=== PATIENT | female | born 1935 | race Hispanic/Latino ===

== ENCOUNTER 2020-10-30 23:02 | Emergency (ER) | payer MEDICARE, OTHER ==
[2020-10-30] MEDS ORDERED: NIFEDIPINE 10 MG CAP ONE (23:27)
[2020-10-30 23:37] LABS: BASOPHILS % (AUTO) 0.7 % (0.0-5.0); EOSINOPHILS % (AUTO) 1.5 % (0.0-8.0); HEMATOCRIT 35.2 % (36-48); LYMPHOCYTES % (AUTO) 47.3 % (21.0-51.0); MEAN CORPUSCULAR HEMOGLOBIN 31.6 pg (27.0-33.0); MEAN CORPUSCULAR HGB CONC 35.2 g/dL (32.0-36.0); MEAN CORPUSCULAR VOLUME 89.8 fL (79-99); NEUTROPHILS % (AUTO) 39.3 % (40.0-77.0); PLATELET COUNT (AUTO) 199 K/uL (130-400); RED BLOOD CELL COUNT(AUTO) 3.92 MIL/uL (4.00-5.50); WHITE BLOOD COUNT (AUTO) 8.7 K/uL (4.8-10.8)
[2020-10-31 00:28] LABS: CREATININE 1.3 mg/dL (0.5-1.5); POTASSIUM 3.9 mmol/L (3.5-5.1)
[2020-10-31 00:32] LABS: ALBUMIN 3.9 g/dL (3.5-5.0); BILIRUBIN,TOTAL 0.4 mg/dL (0.2-1.0); TOTAL PROTEIN, SERUM 7.5 g/dL (6.0-8.3)
== END 2020-10-31 01:00 | disposition home or self-care (01) ==
LOC: EDH 23:02
DX: I10 Essential (primary) hypertension (principal); E78.00 Pure hypercholesterolemia, unspecified; M19.90 Unspecified osteoarthritis, unspecified site; Z90.49 Acquired absence of other specified parts of digestive tract
CPT/HCPCS: 36415; 71045; 80053; 84484; 85025; 93005

== ENCOUNTER 2022-01-18 22:30 | Emergency (ER) | payer OTHER ==
[~2022-01-18] VITALS: Ht 165.1 cm; Wt 70.8 kg
[2022-01-18 23:10] LABS: BASOPHILS % (AUTO) 0.6 % (0.0-5.0); EOSINOPHILS % (AUTO) 0.8 % (0.0-8.0); HEMATOCRIT 31.4 % (36-48); LYMPHOCYTES % (AUTO) 40.1 % (21.0-51.0); MEAN CORPUSCULAR HEMOGLOBIN 30.7 pg (27.0-33.0); MEAN CORPUSCULAR HGB CONC 35.4 g/dL (32.0-36.0); MONOCYTES % (AUTO) 9.8 % (3.0-13.0); NEUTROPHILS % (AUTO) 48.4 % (40.0-77.0); PLATELET COUNT (AUTO) 202 K/uL (130-400); RED BLOOD CELL COUNT(AUTO) 3.61 MIL/uL (4.00-5.50); RED CELL DISTRIBUTION WIDTH 11.9 % (11.0-15.5); WHITE BLOOD COUNT (AUTO) 10.6 K/uL (4.8-10.8)
[2022-01-18] MEDS ORDERED: NIFEDIPINE 10 MG CAP PO ONE (23:30)
[2022-01-18 23:32] LABS: APPEARANCE,URINE CLEAR (CLEAR); BILIRUBIN,URINE NEGATIVE (NEGATIVE); COLOR,URINE YELLOW (YELLOW); GLUCOSE, URINE (UA) NEGATIVE (NEGATIVE); KETONES,URINE NEGATIVE (NEGATIVE); LEUKOCYTE ESTERASE ,URINE NEGATIVE (NEGATIVE); NITRATE,URINE NEGATIVE (NEGATIVE); OCCULT BLOOD,URINE NEGATIVE (NEGATIVE); PH,URINE 7.5 (5.0-8.0); PROTEIN,URINE TRACE mg/dL (NEGATIVE); UROBILINOGEN,URINE 0.2 mg/dL (0.2-1.0)
[2022-01-18 23:33] LABS: ALANINE AMINOTRANSFERASE 18 U/L (12-78); ALBUMIN 3.8 g/dL (3.5-5.0); ASPARTATE AMINOTRANSFERASE 16 U/L (10-37); CARBON DIOXIDE 22 mmol/L (21-32); CHLORIDE 99 mmol/L (101-111); CREATINE KINASE, TOTAL 77 U/L (21-232); CREATININE 1.2 mg/dL (0.5-1.5); GLOMERULAR FILTR. RATE CALC 45 mL/min (>60); GLUCOSE,RANDOM 99 mg/dL (70-105); POTASSIUM 3.5 mmol/L (3.5-5.1); SODIUM SERUM 133 mmol/L (136-145); TOTAL PROTEIN, SERUM 7.1 g/dL (6.0-8.3); UREA NITROGEN, BLOOD 17 mg/dL (7-18)
[2022-01-18 23:40] LABS: CRP QUANTITATIVE < 2.00 mg/L (0.00-9.0)
[2022-01-18 23:45] LABS: BACTERIA,URINE None Seen /HPF (None Seen); RBC,URINE None Seen /HPF (0-1); SQUAMOUS EPITHELIAL CELL,UR Rare /HPF (0-2); WBC,URINE None Seen /HPF (0-1)
[2022-01-18] MEDS ORDERED: HYDR-3421 PO (23:53)
[2022-01-19] MEDS ORDERED: LORAZEPAM 1 MG TABLET ONE (00:06)
[2022-01-19 00:57] LABS: MAGNESIUM 2.1 mg/dL (1.80-2.40)
[2022-01-19 02:06] VITALS: BP 140/48
== END 2022-01-19 02:10 | disposition home or self-care (01) ==
LOC: EDH 22:30
DX: F41.1 Generalized anxiety disorder (principal); T36.4X5A Adverse effect of tetracyclines, initial encounter; I10 Essential (primary) hypertension; Y92.89 Other specified places as the place of occurrence of the external cause
CPT/HCPCS: 99285; 71045; 87635; 82550 ×2; 83735; 84484; 80053; 83880; 85025; 87804 ×2; 86140; 81001; 36415; 93005 ×2; C9803

== ENCOUNTER 2022-07-07 22:57 | Emergency (ER) | payer OTHER ==
[~2022-07-07] VITALS: Ht 160 cm; Wt 56.2 kg
[~2022-07-07 22:57] MED LIST: HYDR-3421 PO
[2022-07-07 23:29] LABS: BASOPHILS % (AUTO) 0.7 % (0.0-5.0); EOSINOPHILS % (AUTO) 0.9 % (0.0-8.0); LYMPHOCYTES % (AUTO) 40.7 % (21.0-51.0); MEAN CORPUSCULAR HEMOGLOBIN 31.2 pg (27.0-33.0); MEAN CORPUSCULAR HGB CONC 35.5 g/dL (32.0-36.0); MONOCYTES % (AUTO) 13.2 % (3.0-13.0); NEUTROPHILS % (AUTO) 44.4 % (40.0-77.0); PLATELET COUNT (AUTO) 216 K/uL (130-400); RED BLOOD CELL COUNT(AUTO) 3.75 MIL/uL (4.00-5.50); RED CELL DISTRIBUTION WIDTH 11.8 % (11.0-15.5)
[2022-07-07 23:37] LABS: CREATININE 1.2 mg/dL (0.5-1.5); POTASSIUM 3.8 mmol/L (3.5-5.1)
[2022-07-07 23:42] LABS: ALBUMIN 3.9 g/dL (3.5-5.0); TOTAL PROTEIN, SERUM 7.5 g/dL (6.0-8.3)
[2022-07-08 00:50] VITALS: BP 136/75
[2022-07-08] MEDS ORDERED: FLUT16H NASAL (01:12)
== END 2022-07-08 01:21 | disposition home or self-care (01) ==
LOC: EDH 22:57
DX: J30.9 Allergic rhinitis, unspecified (principal); E78.00 Pure hypercholesterolemia, unspecified; I10 Essential (primary) hypertension; Z90.49 Acquired absence of other specified parts of digestive tract; Z20.822 Contact with and (suspected) exposure to COVID-19
CPT/HCPCS: 99285; 87635; 84484; 80053; 85025; 87804 ×2; 36415; 93005; 71045; C9803

== ENCOUNTER 2023-03-11 19:49 | Emergency (ER) | payer OTHER ==
[~2023-03-11] VITALS: Ht 154.9 cm; Wt 55.8 kg
[~2023-03-11 19:49] MED LIST changes: +FLUT16H NASAL
[2023-03-11 20:43] LABS: BASOPHILS # (AUTO) 0.09 K/uL (0.00-0.20); BASOPHILS % (AUTO) 0.8 % (0.0-5.0); EOSINOPHILS # (AUTO) 0.12 K/uL (0.00-0.70); EOSINOPHILS % (AUTO) 1.1 % (0.0-8.0); IMMATURE GRANULOCYTE ABSOLUTE 0.03 K/uL (0-1); LYMPHOCYTES % (AUTO) 45.9 % (21.0-51.0); MEAN CORPUSCULAR HEMOGLOBIN 30.6 pg (27.0-33.0); MEAN CORPUSCULAR HGB CONC 34.4 g/dL (32.0-36.0); MEAN CORPUSCULAR VOLUME 88.9 fL (79-99); MONOCYTES % (AUTO) 9.4 % (3.0-13.0); NEUTROPHILS # (AUTO) 4.7 K/uL (1.8-7.7); NEUTROPHILS % (AUTO) 42.5 % (40.0-77.0); PLATELET COUNT (AUTO) 256 K/uL (130-400); RED BLOOD CELL COUNT(AUTO) 4.05 MIL/uL (4.00-5.50); RED CELL DISTRIBUTION WIDTH 11.8 % (11.0-15.5)
[2023-03-11 20:50] LABS: INR < 0.93 (0.85-1.15); PROTHROMBIN TIME 10.3 SEC (9.6-11.6)
[2023-03-11 20:51] LABS: PARTIAL THROMBOPLASTIN TIME 30.1 SEC (26.3-35.5)
[2023-03-11 20:56] LABS: CREATININE 1.1 mg/dL (0.5-1.5); POTASSIUM 4.5 mmol/L (3.5-5.1)
[2023-03-11 20:56] LABS: ADD UA MICROSCOPIC YES; APPEARANCE,URINE CLEAR (CLEAR); BILIRUBIN,URINE NEGATIVE (NEGATIVE); COLOR,URINE COLORLESS (YELLOW); GLUCOSE, URINE (UA) NEGATIVE (NEGATIVE); KETONES,URINE NEGATIVE (NEGATIVE); LEUKOCYTE ESTERASE ,URINE NEGATIVE Leu/uL (NEGATIVE); NITRATE,URINE NEGATIVE (NEGATIVE); OCCULT BLOOD,URINE NEGATIVE (NEGATIVE); PH,URINE 7.5 (5.0-8.0); PROTEIN,URINE 100 mg/dL (NEGATIVE); UROBILINOGEN,URINE 0.2 mg/dL (0.2-1.0)
[2023-03-11] MEDS ORDERED: HYDROXYZINE 25 MG TABLET PO ONE (21:00)
[2023-03-11 21:01] LABS: BILIRUBIN,TOTAL 0.3 mg/dL (0.2-1.0)
[2023-03-11] MEDS ORDERED: ACETAMINOPHEN 500 MG TABLET ONE (21:05)
[2023-03-11 21:11] LABS: SQUAMOUS EPITHELIAL CELL,UR FEW /HPF (0-2)
[2023-03-11] MEDS ORDERED: LORAZEPAM 2 MG/ML 1 ML VIAL IVP ONE (21:30)
[2023-03-11] MEDS ORDERED: ACETAMINOPHEN 500 MG TABLET PO ONE (21:30)
[2023-03-11] MEDS ORDERED: HYDR50CA50 PO (23:18)
[2023-03-11 23:43] VITALS: BP 143/50; PULSE 66; RESP 18; O2SAT 100
== END 2023-03-12 00:01 | disposition home or self-care (01) ==
LOC: EDH 19:49
DX: F41.9 Anxiety disorder, unspecified (principal); I16.0 Hypertensive urgency; I51.7 Cardiomegaly; E78.00 Pure hypercholesterolemia, unspecified; I10 Essential (primary) hypertension; Z90.49 Acquired absence of other specified parts of digestive tract
CPT/HCPCS: 99285; 96374; 71045; 84484; 80053; 85025; 85610; 85730; 81001; 36415; 93005; J2060

== ENCOUNTER 2023-03-25 23:37 | Emergency (ER) | payer OTHER ==
[~2023-03-25 23:37] MED LIST changes: +HYDR50CA50 PO
[2023-03-25 23:54] LABS: BASOPHILS # (AUTO) 0.08 K/uL (0.00-0.20); BASOPHILS % (AUTO) 0.7 % (0.0-5.0); EOSINOPHILS # (AUTO) 0.17 K/uL (0.00-0.70); EOSINOPHILS % (AUTO) 1.5 % (0.0-8.0); HEMATOCRIT 34.4 % (36-48); IMMATURE GRANULOCYTE ABSOLUTE 0.02 K/uL (0-1); LYMPHOCYTES # (AUTO) 6.5 K/uL (1.0-4.8); MEAN CORPUSCULAR HEMOGLOBIN 31.2 pg (27.0-33.0); MEAN CORPUSCULAR HGB CONC 36.3 g/dL (32.0-36.0); MEAN CORPUSCULAR VOLUME 85.8 fL (79-99); MONOCYTES # (AUTO) 0.9 K/uL (0.1-1.0); MONOCYTES % (AUTO) 7.4 % (3.0-13.0); NEUTROPHILS % (AUTO) 34.2 % (40.0-77.0); PLATELET COUNT (AUTO) 254 K/uL (130-400); RED BLOOD CELL COUNT(AUTO) 4.01 MIL/uL (4.00-5.50); RED CELL DISTRIBUTION WIDTH 11.6 % (11.0-15.5); WHITE BLOOD COUNT (AUTO) 11.6 K/uL (4.8-10.8)
[2023-03-26] MEDS ORDERED: CLONIDINE HCL 0.2 MG TABLET PO ONE
[2023-03-26 00:02] LABS: CREATININE 1.2 mg/dL (0.5-1.5)
[2023-03-26 00:06] LABS: ALBUMIN 4.3 g/dL (3.5-5.0); BILIRUBIN,TOTAL 0.5 mg/dL (0.2-1.0); TOTAL PROTEIN, SERUM 8.3 g/dL (6.0-8.3)
[2023-03-26 00:17] LABS: APPEARANCE,URINE CLEAR (CLEAR); BILIRUBIN,URINE NEGATIVE (NEGATIVE); COLOR,URINE COLORLESS (YELLOW); GLUCOSE, URINE (UA) NEGATIVE (NEGATIVE); KETONES,URINE NEGATIVE (NEGATIVE); LEUKOCYTE ESTERASE ,URINE NEGATIVE Leu/uL (NEGATIVE); NITRATE,URINE NEGATIVE (NEGATIVE); OCCULT BLOOD,URINE NEGATIVE (NEGATIVE); PH,URINE 7.5 (5.0-8.0); PROTEIN,URINE 70 mg/dL (NEGATIVE); UROBILINOGEN,URINE 0.2 mg/dL (0.2-1.0)
[2023-03-26 00:27] LABS: ADD UA MICROSCOPIC YES
[2023-03-26 00:33] LABS: BACTERIA,URINE RARE /HPF (None Seen); SQUAMOUS EPITHELIAL CELL,UR RARE /HPF (0-2); WBC,URINE 0-1 /HPF (0-1)
[2023-03-26] MEDS ORDERED: LABETALOL 20MG SYG IV ONE (01:00)
[2023-03-26] MEDS ORDERED: LISI20TA24 PO (02:25)
[2023-03-26 02:55] VITALS: BP 120/45; PULSE 61; RESP 18; O2SAT 99
== END 2023-03-26 03:03 | disposition home or self-care (01) ==
LOC: EDH 23:37
DX: I16.0 Hypertensive urgency (principal); E78.00 Pure hypercholesterolemia, unspecified; I10 Essential (primary) hypertension; Z90.49 Acquired absence of other specified parts of digestive tract
CPT/HCPCS: 36415; 80053; 81001; 83880; 84484; 85025; 93005; 96374

== ENCOUNTER 2023-04-07 21:47 | Emergency (ER) | payer OTHER ==
[~2023-04-07] VITALS: Ht 152.4 cm; Wt 54.4 kg
[~2023-04-07 21:47] MED LIST changes: +LISI20TA24 PO
[2023-04-07 22:15] LABS: BASOPHILS # (AUTO) 0.05 K/uL (0.00-0.20); BASOPHILS % (AUTO) 0.4 % (0.0-5.0); EOSINOPHILS % (AUTO) 0.8 % (0.0-8.0); IMMATURE GRANULOCYTE ABSOLUTE 0.11 K/uL (0-1); LYMPHOCYTES # (AUTO) 3.8 K/uL (1.0-4.8); LYMPHOCYTES % (AUTO) 28.8 % (21.0-51.0); MEAN CORPUSCULAR HEMOGLOBIN 31.8 pg (27.0-33.0); MEAN CORPUSCULAR HGB CONC 35.9 g/dL (32.0-36.0); MEAN CORPUSCULAR VOLUME 88.7 fL (79-99); MONOCYTES # (AUTO) 1.3 K/uL (0.1-1.0); MONOCYTES % (AUTO) 9.6 % (3.0-13.0); NEUTROPHILS # (AUTO) 7.9 K/uL (1.8-7.7); NEUTROPHILS % (AUTO) 59.6 % (40.0-77.0); PLATELET COUNT (AUTO) 241 K/uL (130-400); RED BLOOD CELL COUNT(AUTO) 3.27 MIL/uL (4.00-5.50); RED CELL DISTRIBUTION WIDTH 12.5 % (11.0-15.5); WHITE BLOOD COUNT (AUTO) 13.2 K/uL (4.8-10.8)
[2023-04-07 22:30] LABS: SARS-CoV-2, RNA, NAAT NEGATIVE SARS CoV-2 (NEGATIVE)
[2023-04-07 22:39] LABS: B-TYPE NATRIURETIC PEPTIDE 376 pg/mL (0-100)
[2023-04-07 22:40] LABS: INFLUENZA TYPE A Negative For Type A (NEGATIVE); INFLUENZA TYPE B Negative For Type B (NEGATIVE)
[2023-04-07 22:42] LABS: CREATININE 1.4 mg/dL (0.5-1.5); MAGNESIUM 2.2 mg/dL (1.80-2.40); POTASSIUM 4.6 mmol/L (3.5-5.1)
[2023-04-07 22:44] LABS: APPEARANCE,URINE CLEAR (CLEAR); BILIRUBIN,URINE NEGATIVE (NEGATIVE); GLUCOSE, URINE (UA) NEGATIVE (NEGATIVE); KETONES,URINE NEGATIVE (NEGATIVE); LEUKOCYTE ESTERASE ,URINE NEGATIVE Leu/uL (NEGATIVE); NITRATE,URINE NEGATIVE (NEGATIVE); OCCULT BLOOD,URINE NEGATIVE (NEGATIVE); PROTEIN,URINE 30 mg/dL (NEGATIVE); UROBILINOGEN,URINE 0.2 mg/dL (0.2-1.0)
[2023-04-07 22:45] LABS: ADD UA MICROSCOPIC YES; COLOR,URINE YELLOW (YELLOW)
[2023-04-07 22:46] LABS: WBC,URINE 0-1 /HPF (0-1)
[2023-04-07 22:48] LABS: MUCUS,URINE RARE LPF (None Seen); SQUAMOUS EPITHELIAL CELL,UR RARE /HPF (0-2)
[2023-04-07] MEDS ORDERED: HYDROXYZINE 25 MG TABLET ONE (22:49)
[2023-04-07] MEDS ORDERED: HYDROXYZINE 25 MG TABLET PO ONE (23:00)
[2023-04-08] MEDS ORDERED: HYDR50CA50 PO (01:13)
[2023-04-08 01:33] VITALS: BP 159/48; PULSE 68; RESP 18; O2SAT 98
== END 2023-04-08 01:48 | disposition home or self-care (01) ==
LOC: EDH 21:47
DX: F41.9 Anxiety disorder, unspecified (principal); I16.0 Hypertensive urgency; E78.00 Pure hypercholesterolemia, unspecified; I10 Essential (primary) hypertension; Z79.899 Other long term (current) drug therapy; Z90.49 Acquired absence of other specified parts of digestive tract; Z20.822 Contact with and (suspected) exposure to COVID-19
CPT/HCPCS: 99285; 71045; 87635; 82550; 83735; 83874; 84484; 80048; 83880; 85025; 87804 ×2; 81001; 36415; 93005; C9803

== ENCOUNTER 2023-04-22 20:36 | Emergency (ER) | payer OTHER ==
[2023-04-22 21:21] VITALS: BP 165/78; PULSE 85; RESP 17; O2SAT 98
== END 2023-04-22 21:56 | disposition left against medical advice (07) ==
LOC: EDH 20:36
DX: F41.0 Panic disorder [episodic paroxysmal anxiety] (principal); Z53.21 Procedure and treatment not carried out due to patient leaving prior to being seen by health care provider
CPT/HCPCS: 99281

== ENCOUNTER 2023-04-29 18:20 | Emergency (ER) | payer OTHER ==
[~2023-04-29] VITALS: Ht 152.4 cm; Wt 54.4 kg
[2023-04-29 19:54] LABS: APPEARANCE,URINE CLEAR (CLEAR); BILIRUBIN,URINE NEGATIVE (NEGATIVE); COLOR,URINE COLORLESS (YELLOW); GLUCOSE, URINE (UA) NEGATIVE (NEGATIVE); KETONES,URINE NEGATIVE (NEGATIVE); LEUKOCYTE ESTERASE ,URINE 250 Leu/uL (NEGATIVE); NITRATE,URINE NEGATIVE (NEGATIVE); OCCULT BLOOD,URINE NEGATIVE (NEGATIVE); PH,URINE 6.5 (5.0-8.0); PROTEIN,URINE 10 mg/dL (NEGATIVE); UROBILINOGEN,URINE 0.2 mg/dL (0.2-1.0)
[2023-04-29 19:56] LABS: ADD UA MICROSCOPIC YES
[2023-04-29 19:58] LABS: RBC,URINE 0-1 /HPF (0-1)
[2023-04-29] MEDS ORDERED: CEFU500T67 PO (20:33)
[2023-04-29 20:47] VITALS: BP 132/74; PULSE 88; RESP 20; O2SAT 98
[2023-04-29 20:51] LABS: MEAN CORPUSCULAR HEMOGLOBIN 31.7 pg (27.0-33.0); MEAN CORPUSCULAR HGB CONC 34.8 g/dL (32.0-36.0); PLATELET COUNT (AUTO) 248 K/uL (130-400); RED BLOOD CELL COUNT(AUTO) 2.21 MIL/uL (4.00-5.50); RED CELL DISTRIBUTION WIDTH 12.9 % (11.0-15.5); WHITE BLOOD COUNT (AUTO) 9.7 K/uL (4.8-10.8)
[2023-04-29 21:03] LABS: CREATININE 1.2 mg/dL (0.5-1.5); POTASSIUM 3.3 mmol/L (3.5-5.1)
[2023-04-29 21:05] LABS: HEMATOCRIT 20.1 % (36-48)
[2023-04-29 21:08] LABS: ALBUMIN 3.3 g/dL (3.5-5.0); BILIRUBIN,TOTAL 0.3 mg/dL (0.2-1.0); TOTAL PROTEIN, SERUM 6.5 g/dL (6.0-8.3)
[2023-04-30] MEDS ORDERED: CARV25TA PO (09:18)
[2023-04-30] MEDS ORDERED: HYDR12.54 PO (09:18)
[2023-04-30] MEDS ORDERED: MULT-1250 PO (09:18)
[2023-04-30] MEDS ORDERED: LORA0.5T83 PO (09:18)
[2023-04-30] MEDS ORDERED: IRBE300T18 PO (09:18)
[2023-04-30] MEDS ORDERED: ATOR10TA69 PO (09:18)
[2023-05-05] MEDS ORDERED: HYDR-3421 PO (09:19)
[2023-05-05] MEDS ORDERED: LISI20TA24 PO (09:19)
== END 2023-04-29 20:58 | disposition home or self-care (01) ==
LOC: EDH 18:20
DX: S09.90XA Unspecified injury of head, initial encounter (principal); N39.0 Urinary tract infection, site not specified; F41.9 Anxiety disorder, unspecified; I10 Essential (primary) hypertension; Z90.49 Acquired absence of other specified parts of digestive tract; Z88.0 Allergy status to penicillin; Z79.899 Other long term (current) drug therapy; W01.0XXA Fall on same level from slipping, tripping and stumbling without subsequent striking against object, initial encounter; Y93.01 Activity, walking, marching and hiking; Y92.89 Other specified places as the place of occurrence of the external cause; Y99.8 Other external cause status
CPT/HCPCS: 36415; 70450; 70486; 72125; 80053; 81001; 83605; 84484; 85027; 87088; 93005

== ENCOUNTER → 2023-05-22 | Outpatient (CLI) | payer OTHER ==
[~2023-05-22] MED LIST changes: +ATOR10TA69 PO; +CARV25TA PO; -HYDR50CA50 PO; +IRBE300T18 PO; +MULT-1250 PO
[2023-05-22 16:14] LABS: BASOPHILS # (AUTO) 0.05 K/uL (0.00-0.20); BASOPHILS % (AUTO) 0.8 % (0.0-5.0); EOSINOPHILS # (AUTO) 0.08 K/uL (0.00-0.70); EOSINOPHILS % (AUTO) 1.3 % (0.0-8.0); HEMATOCRIT 27.1 % (36-48); IMMATURE GRANULOCYTE ABSOLUTE 0.01 K/uL (0-1); LYMPHOCYTES # (AUTO) 2.8 K/uL (1.0-4.8); LYMPHOCYTES % (AUTO) 44.5 % (21.0-51.0); MEAN CORPUSCULAR HEMOGLOBIN 30.2 pg (27.0-33.0); MEAN CORPUSCULAR HGB CONC 32.8 g/dL (32.0-36.0); MEAN CORPUSCULAR VOLUME 91.9 fL (79-99); MONOCYTES # (AUTO) 0.8 K/uL (0.1-1.0); MONOCYTES % (AUTO) 11.8 % (3.0-13.0); NEUTROPHILS # (AUTO) 2.6 K/uL (1.8-7.7); NEUTROPHILS % (AUTO) 41.4 % (40.0-77.0); PLATELET COUNT (AUTO) 271 K/uL (130-400); RED BLOOD CELL COUNT(AUTO) 2.95 MIL/uL (4.00-5.50); RED CELL DISTRIBUTION WIDTH 14.6 % (11.0-15.5); WHITE BLOOD COUNT (AUTO) 6.3 K/uL (4.8-10.8)
== END | disposition home or self-care (01) ==
LOC: LAB 13:05
PROVIDERS: ATTEND Internal Medicine Cardiovascular Disease
DX: I10 Essential (primary) hypertension (principal)
CPT/HCPCS: 36415; 85025

== ENCOUNTER 2023-06-02 11:07 | Inpatient (IN) | payer OTHER ==
[~2023-06-02] VITALS: Ht 152.4 cm; Wt 55.9 kg
[2023-06-02] MEDS ORDERED: 0.9% NACL 500ML IV.SOLN 500 ML IV ONE (14:00)
[2023-06-02 14:53] LABS: BASOPHILS # (AUTO) 0.05 K/uL (0.00-0.20); BASOPHILS % (AUTO) 0.8 % (0.0-5.0); EOSINOPHILS # (AUTO) 0.06 K/uL (0.00-0.70); HEMATOCRIT 33.1 % (36-48); IMMATURE GRANULOCYTE ABSOLUTE 0.01 K/uL (0-1); LYMPHOCYTES # (AUTO) 2.6 K/uL (1.0-4.8); MEAN CORPUSCULAR HEMOGLOBIN 29.6 pg (27.0-33.0); MEAN CORPUSCULAR HGB CONC 33.8 g/dL (32.0-36.0); MEAN CORPUSCULAR VOLUME 87.6 fL (79-99); MONOCYTES # (AUTO) 0.6 K/uL (0.1-1.0); NEUTROPHILS # (AUTO) 2.7 K/uL (1.8-7.7); PLATELET COUNT (AUTO) 280 K/uL (130-400); RED BLOOD CELL COUNT(AUTO) 3.78 MIL/uL (4.00-5.50); RED CELL DISTRIBUTION WIDTH 13.4 % (11.0-15.5)
[2023-06-02 15:11] LABS: CREATININE 1.1 mg/dL (0.5-1.5); POTASSIUM 3.8 mmol/L (3.5-5.1)
[2023-06-02 15:16] LABS: MAGNESIUM 2.1 mg/dL (1.80-2.40)
[2023-06-02 15:43] LABS: APPEARANCE,URINE CLEAR (CLEAR); BILIRUBIN,URINE NEGATIVE (NEGATIVE); COLOR,URINE LIGHT-YELLOW (YELLOW); GLUCOSE, URINE (UA) NEGATIVE (NEGATIVE); KETONES,URINE NEGATIVE (NEGATIVE); LEUKOCYTE ESTERASE ,URINE NEGATIVE Leu/uL (NEGATIVE); NITRATE,URINE NEGATIVE (NEGATIVE); OCCULT BLOOD,URINE NEGATIVE (NEGATIVE); PROTEIN,URINE 100 mg/dL (NEGATIVE); UROBILINOGEN,URINE 0.2 mg/dL (0.2-1.0)
[2023-06-02 15:44] LABS: ADD UA MICROSCOPIC YES
[2023-06-02 15:45] LABS: BACTERIA,URINE RARE /HPF (None Seen); MUCUS,URINE RARE LPF (None Seen); OTHER CASTS, URINE 1 /LPF (None Seen); SQUAMOUS EPITHELIAL CELL,UR RARE /HPF (0-2)
[2023-06-02] MEDS ORDERED: POTASSIUM CHLORIDE 10% ELIXIR 20 MEQ/15 ML UDCUP PO PRN (17:30)
[2023-06-02] MEDS ORDERED: HYDROXYZINE 25 MG TABLET PO PRN (17:30)
[2023-06-02] MEDS ORDERED: ONDANSETRON 4MG INJ IVP PRN (17:30)
[2023-06-02] MEDS ORDERED: GLUCAGON 1MG KIT 1 MG ML IM PRN (17:30)
[2023-06-02] MEDS ORDERED: LACTULOSE 20 GM/30 ML UDCUP PO PRN (17:30)
[2023-06-02] MEDS ORDERED: MAGNESIUM 2GM PREMIX 50ML 50 ML IV PRN (17:30)
[2023-06-02] MEDS: POLYETHYLENE GLYCOL 3350 17 GM POWD.PACK PO SCH (17:30)
[2023-06-02] MEDS ORDERED: KCL 20 MEQ ERTAB PO PRN (17:30)
[2023-06-02] MEDS ORDERED: DEXTROSE 50%-WATER 50 ML DISP.SYRIN IV PRN (17:30)
[2023-06-02] MEDS ORDERED: ACETAMINOPHEN 325 MG TAB PO PRN (17:30)
[2023-06-02] MEDS ORDERED: ALBUTEROL 0.083% 2.5 MG/3 ML INH IH PRN (17:30)
[2023-06-02 17:36] VITALS: PULSE 80; RESP 18; O2SAT 97
[2023-06-02] MEDS ORDERED: ZIPRASIDONE MESYLATE 20 MG/VIAL IM SCH (18:00)
[2023-06-02 18:06] LABS: PHOSPHORUS 3.4 mg/dL (2.5-4.9)
[2023-06-02] MEDS: LACTATED RINGERS 1000ML 1,000 ML IV SCH (18:40)
[2023-06-02] MEDS: INSULIN HUMULIN R 100 UNIT/ML 3ML SQ SCH (21:00)
[2023-06-02] MEDS: DOCUSATE SODIUM 100 MG CAP PO SCH (21:03)
[2023-06-02] MEDS: LIDOCAINE 5% TOPICAL PATCH TP SCH (21:58)
[2023-06-03] MEDS: INSULIN HUMULIN R 100 UNIT/ML 3ML SQ SCH ×4 (07:30→21:00)
[2023-06-03] MEDS: LACTATED RINGERS 1000ML 1,000 ML IV SCH ×2 (07:41→15:28)
[2023-06-03 08:59] LABS: BASOPHILS # (AUTO) 0.06 K/uL (0.00-0.20); BASOPHILS % (AUTO) 0.8 % (0.0-5.0); EOSINOPHILS # (AUTO) 0.08 K/uL (0.00-0.70); EOSINOPHILS % (AUTO) 1.1 % (0.0-8.0); HEMATOCRIT 30.9 % (36-48); IMMATURE GRANULOCYTE ABSOLUTE 0.02 K/uL (0-1); LYMPHOCYTES % (AUTO) 41.4 % (21.0-51.0); MEAN CORPUSCULAR HEMOGLOBIN 29.4 pg (27.0-33.0); MEAN CORPUSCULAR HGB CONC 34.3 g/dL (32.0-36.0); MEAN CORPUSCULAR VOLUME 85.6 fL (79-99); MONOCYTES # (AUTO) 0.7 K/uL (0.1-1.0); NEUTROPHILS # (AUTO) 3.4 K/uL (1.8-7.7); NEUTROPHILS % (AUTO) 47.4 % (40.0-77.0); PLATELET COUNT (AUTO) 298 K/uL (130-400); RED BLOOD CELL COUNT(AUTO) 3.61 MIL/uL (4.00-5.50); RED CELL DISTRIBUTION WIDTH 13.6 % (11.0-15.5); WHITE BLOOD COUNT (AUTO) 7.2 K/uL (4.8-10.8)
[2023-06-03 09:13] LABS: % IRON SATURATION 20.1 % (22-44)
[2023-06-03 09:15] LABS: CREATININE 1.1 mg/dL (0.5-1.5); PHOSPHORUS 3.8 mg/dL (2.5-4.9); POTASSIUM 3.8 mmol/L (3.5-5.1)
[2023-06-03] MEDS: DOCUSATE SODIUM 100 MG CAP PO SCH ×2 (09:53→22:30)
[2023-06-03] MEDS: PANTOPRAZOLE 40 MG TAB DR PO SCH (09:53)
[2023-06-03] MEDS: LIDOCAINE 5% TOPICAL PATCH TP SCH (09:53)
[2023-06-03] MEDS: ENOXAPARIN SODIUM 30 MG/0.3 ML SQ SCH (09:54)
[2023-06-03] MEDS: POLYETHYLENE GLYCOL 3350 17 GM POWD.PACK PO SCH (09:54)
[2023-06-03] MEDS: HYDRALAZINE 20MG/ML VIAL IV PRN (10:53)
[2023-06-03 12:30] VITALS: O2SAT 99
[2023-06-03 12:50] VITALS: BP 182/117; PULSE 101; RESP 19
[2023-06-03 16:00] VITALS: BP 166/73; PULSE 91; RESP 20
[2023-06-03] MEDS ORDERED: ZIPRASIDONE MESYLATE 20 MG/VIAL IM PRN (16:30)
[2023-06-03 19:20] VITALS: O2SAT 95
[2023-06-03 20:00] VITALS: BP 110/49; PULSE 89; RESP 17
[2023-06-03] MEDS: RISPERIDONE 0.5 MG TABLET PO SCH (22:30)
[2023-06-03 23:46] VITALS: BP 149/50; PULSE 87; RESP 18
[2023-06-04] VITALS (7 sets, daily range): BP systolic 119–194; BP diastolic 43–82; PULSE 77–80; RESP 18–20; O2SAT 94–97
[2023-06-04] MEDS: INSULIN HUMULIN R 100 UNIT/ML 3ML SQ SCH ×4 (06:37→21:00)
[2023-06-04] MEDS: POLYETHYLENE GLYCOL 3350 17 GM POWD.PACK PO SCH (09:00)
[2023-06-04] MEDS: RISPERIDONE 0.5 MG TABLET PO SCH ×2 (09:00→21:00)
[2023-06-04] MEDS: PANTOPRAZOLE 40 MG TAB DR PO SCH (09:00)
[2023-06-04] MEDS: DOCUSATE SODIUM 100 MG CAP PO SCH ×2 (09:00→21:00)
[2023-06-04] MEDS: LIDOCAINE 5% TOPICAL PATCH TP SCH (09:19)
[2023-06-04] MEDS: ENOXAPARIN SODIUM 30 MG/0.3 ML SQ SCH (09:19)
[2023-06-04] MEDS: LACTATED RINGERS 1000ML 1,000 ML IV SCH ×2 (09:28→23:23)
[2023-06-04] MEDS: HYDRALAZINE 20MG/ML VIAL IV PRN (11:59)
[2023-06-05] VITALS: BP 170/62; PULSE 83; RESP 20
[2023-06-05 04:00] VITALS: BP 158/53; PULSE 80; RESP 20
[2023-06-05] MEDS: HYDRALAZINE 20MG/ML VIAL IV PRN (04:10)
[2023-06-05] MEDS: INSULIN HUMULIN R 100 UNIT/ML 3ML SQ SCH ×2 (05:36→11:30)
[2023-06-05 07:17] VITALS: PULSE 94; RESP 21; O2SAT 95
[2023-06-05 08:00] VITALS: BP 157/68; PULSE 93; RESP 16; O2SAT 98
[2023-06-05] MEDS: RISPERIDONE 0.5 MG TABLET PO SCH (09:00)
[2023-06-05] MEDS: PANTOPRAZOLE 40 MG TAB DR PO SCH (09:00)
[2023-06-05] MEDS: POLYETHYLENE GLYCOL 3350 17 GM POWD.PACK PO SCH (09:00)
[2023-06-05] MEDS: DOCUSATE SODIUM 100 MG CAP PO SCH (09:00)
[2023-06-05] MEDS: ENOXAPARIN SODIUM 30 MG/0.3 ML SQ SCH (09:00)
[2023-06-05] MEDS: LIDOCAINE 5% TOPICAL PATCH TP SCH (10:03)
[2023-06-05 11:55] VITALS: O2SAT 100
== END 2023-06-05 15:35 | disposition hospice, home (50) | DRG 377 ==
LOC: EDH 11:07 → EDHIP 17:10 → OBSVTOIN 17:10 → 3DH 06-03 12:45
PROVIDERS: ADMIT Internal Medicine Pulmonary Disease; ATTEND Internal Medicine Pulmonary Disease
DX: K92.2 Gastrointestinal hemorrhage, unspecified (principal); G92.8 Other toxic encephalopathy; D62 Acute posthemorrhagic anemia; F03.94 Unspecified dementia, unspecified severity, with anxiety; I31.39 Other pericardial effusion (noninflammatory); R64 Cachexia; F03.93 Unspecified dementia, unspecified severity, with mood disturbance; E44.0 Moderate protein-calorie malnutrition; E86.0 Dehydration; F41.0 Panic disorder [episodic paroxysmal anxiety]; R62.7 Adult failure to thrive; N18.30 Chronic kidney disease, stage 3 unspecified; I12.9 Hypertensive chronic kidney disease with stage 1 through stage 4 chronic kidney disease, or unspecified chronic kidney disease; F41.1 Generalized anxiety disorder; E78.5 Hyperlipidemia, unspecified; E11.22 Type 2 diabetes mellitus with diabetic chronic kidney disease; F32.A Depression, unspecified; Z86.16 Personal history of COVID-19; Z87.11 Personal history of peptic ulcer disease; Z87.440 Personal history of urinary (tract) infections; Z68.24 Body mass index [BMI] 24.0-24.9, adult
CPT/HCPCS: 36415; 73560; 74018; 80048; 81001; 82140; 82330; 82550; 82948; 83540; 83550; 83605; 83690; 83735; 84100; 84134; 84484; 85025; 93005; 93308; 96372; G0378; J0360; J1650; J3486